=== PATIENT | female | born 1940 | race Caucasian/White ===

== ENCOUNTER 2020-03-31 10:59 | Emergency (ER) | payer MEDICARE, SELFPAY ==
[2020-03-31 10:59] VITALS: BP 156/97; PULSE 106; RESP 18; TEMP 36.9; O2SAT 95; BMI 31.3
--- NOTE | 2020-03-31 11:03 | XRR_ITS ---
PROCEDURE INFORMATION: Exam: XR Left Knee Exam date and time: 03/31/2020 11:03 AM Age: 79 years old Clinical indication: Injury or trauma; Fall; Initial encounter; Blunt trauma; Knee; Left; Additional info: Fall, pain TECHNIQUE: Imaging protocol: XR Left knee. Views: Frontal, lateral, and oblique views. COMPARISON: No relevant prior studies available. FINDINGS: Bones/joints: Small knee joint effusion. No acute bony abnormality identified. Soft tissues: A quadriceps tendon enthesis of the superior pole of the patella is present. XR/XR knee LT 3V* [id number] IMPRESSION: 1. Small knee joint effusion. 2. No acute bony injury identified.
--- NOTE | 2020-03-31 11:08 | ED_ITS ---
HPI - Fall General: Chief Complaint: Extremity Injury, Lower Stated Complaint: LEFT KNEE PAIN S/P FALL Time Seen by Provider: 03/31/20 11:00 History of Present Illness: HPI Narrative: This is a 79 year old female patient presenting with knee pain after a fall a week ago. Today she tried to go out and work in the garden and then knee gave out causing her to fall forward. She caught herself on her hands but also hit the knee somewhat. She was brought in today by ambulance and is unable to weight bear on the left leg. She denies back or neck pain and did not hit her head. She did hit the right side of her face with the original fall a week ago but that seems to be healed up. She says her wrists are little bit sore but she has full range of motion and no swelling. Review of Systems Musc: Reports: joint pain (Left knee) Neuro: Denies: numbness in extremities or weakness in extremities PFSH ED PFSH: Social History Smoking and tobacco status: never smoked Physical Exam Const: COMMON NORMALS: no acute distress, patient oriented x3, no limitations and alert GENERAL APPEARANCE: cooperative and comfortable HENMT: HEAD & SCALP: normal to inspection FACE & SINUS: normal facial exam Eye: GENERAL EYE: appearance normal, both eyes and all related structures Neck/C-Spine: COMMON NORMALS: supple, no meningeal signs and no JVD Chest: COMMONS NORMALS: normal inspection of the chest Resp: COMMON NORMALS: normal respiratory effort, No use of accessory muscles and clear to auscultation bilaterally AUSCULTATION: clear to auscultation bilaterally Cardio: COMMON NORMALS: no JVD, regular rate, regular rhythm and No murmurs present (Cardio) RATE: regular rate RHYTHM: regular rhythm GI: COMMON NORMALS: Normal to inspection, nondistended, normoactive bowel sounds present, Soft to palpation and non-tender INSPECTION: Yes normal to inspection AUSCULTATION: Yes normoactive bowel sounds PALPATION: Yes Soft to palpation Back/Pelvis: COMMON NORMALS: thoracic and lumbar spine normal to inspection Extremity: GENERAL: Yes normal exam except as noted LEFT LOWER EXTREMITY: Yes knee joint (Swelling, tenderness, abrasions. Unable to weight-bear.) Neuro: COMMON NORMALS: patient oriented x3, moves all extremities, no focal motor deficits and no sensory deficits noted SENSORIUM/ORIENTATION: Yes alert MENINGEAL SIGNS: Yes no meningeal signs Psych: COMMON NORMALS: mental status grossly normal, cooperative and normal affect Skin: COMMON NORMALS: no rashes or lesions noted and turgor normal GENERAL SKIN EXAM: no rashes or lesions noted and turgor normal Course ED course: The patient had negative x-rays but may have a ligamentous or carti laginous injury to the knee. She is unable to weight-bear but can extend it and I believe the tendons are intact. I have arranged for a walker and a knee immobilizer. We have arranged for physical therapy to come and sure to use a walker. We contacted her son to come and pick her up and he was irate that we would discharge her home. He says she has 5 steps to go up to get in the house and there is no way that he can take her. Came to the ER and I spoke to him about this and informed him that there was no indication to keep her in the hospital. The only other option medically would be a fpc which she neither requires nor desires. The patient wants to go home and I think she is going to be able to do so. We will see how she does with physical therapy and the walker before a final decision. Reevaluation(s): Reevaluation #1: Ms. Negrete was seen by physical therapy and given instructions on using the walker on steps. He said she did well with the walker in the ED. She will be discharged home with her son and was given orthopedic follow-up for further evaluation of her knee injury. She will continue taking Tylenol arthritis for pain. I also did give her a small prescription for hydrocodone in case she needs that as well. Time: 13:01 Vital Signs: Vital signs: Vital Signs Temperature 98.5 F 03/31/20 10:59 Pulse Rate 94 03/31/20 13:14 Respiratory Rate 16 03/31/20 13:14 Blood Pressure 183/100 03/31/20 13:14 Pulse Oximetry 97 03/31/20 13:14 Discharge Plan Discharge Patient Disposition: Home, Self-Care Clinical Impression: Acute internal derangement of knee Qualifiers: Laterality: left Qualified Code(s): M23.92 - Unspecified internal derangement of left knee Condition: Stable Prescriptions: New hydrocodone-acetaminophen 5-325 mg tablet 1 tab PO Q8H PRN (Reason: pain) Qty: 10 RF: 0 No Action levothyroxine 100 mcg tablet 100 mcg PO DAILY 90 Days Qty: 90 RF: 3 hydrochlorothiazide 25 mg tablet 25 mg PO DAILY 90 Days Qty: 90 RF: 3 glipizide 5 mg tablet 2.5 mg PO BID 90 Days Qty: 90 RF: 3 metformin 500 mg Tablet 250 mg PO BID RF: 0 Aspir-81 81 mg Tablet,Delayed Release (Dr/Ec) 81 mg PO DAILY RF: 0 Tylenol Arthritis Pain 650 mg Tablet Extended Release 650 mg PO PRN RF: 0 zinc 50 mg Tablet 50 mg PO DAILY RF: 0 [place] Mushroom 1 cap PO DAILY RF: 0 Vitamin C 1 tab PO DAILY RF: 0 omeprazole 20 mg capsule,delayed release(DR/EC) 20 mg PO DAILY PRN (Reason: unknown) RF: 0 Discharge Orders: Discharge Order (Routine); Ordered 03/31/20 Ordered By: Cleopatra Blair Referrals: Liset Killian MD [Primary Care Provider] - Roman العراقي DO [Physician] - 4-7 days (internal derangement left knee) Discharge Diet: Usual diet Discharge Activity: Limit activity as instructed and Use walker/crutches as instructed Patient Instructions: Knee Immobilizer (ED) Activity Restrictions/Additional Instructions: Limit weight bearing on the left knee - use the walker when ambulating. Follow up with the orthopedic office for further evaluation and treatment. Discharge Date/Time: 03/31/20 13:14 Coding Level of Care Code ED Web Applications Programmer for Gerard Fwd Exam Comprehensive
[2020-03-31 13:14] VITALS: BP 183/100; PULSE 94; RESP 16; O2SAT 97
--- NOTE | 2020-04-01 11:22 | DCPLANNER ---
network contract manager had message to schedule a follow up appointment for patient with ortho. network contract manager called the ortho clinic, spoke with Pat, gave clinic patients information. network contract manager was told that patients information would be printed and reviewed. Clinic will call protective services case worker with appointment information.
--- NOTE | 2020-04-02 09:11 | DCPLANNER ---
Patient has a follow up appointment scheduled with ortho for Wednesday, April 03, 2020 at 1:[address] Hooper. Clinic will call patient with appointment information.
--- NOTE | 2020-04-18 14:58 | DCPLANNER ---
Patients appointment scheduled for 04.17.20 with ortho was cancelled.
== END 2020-03-31 13:14 | disposition home or self-care (01) ==
PROVIDERS: Emergency Provider Emergency Medicine; Family Provider Family Medicine; PCP Family Medicine
DX: M23.8X2 Other internal derangements of left knee (principal); Z79.84 Long term (current) use of oral hypoglycemic drugs; Z79.82 Long term (current) use of aspirin
CPT/HCPCS: 12345; 29530; 73562; 97161; 97530; 99281; 99283

== ENCOUNTER → 2020-06-20 11:47 | Outpatient (BNVA) | payer MEDICARE, SELFPAY | PROVIDERS: Family Provider Family Medicine; PCP Family Medicine; Visit Provider Family Medicine | DX: E78.00 Pure hypercholesterolemia, unspecified (principal); E11.9 Type 2 diabetes mellitus without complications; E03.8 Other specified hypothyroidism | CPT/HCPCS: 80053; 83036; 84443; 85025 ==

== ENCOUNTER → 2020-08-15 08:45 | Outpatient (BNVA) | payer MEDICARE, SELFPAY | PROVIDERS: Family Provider Family Medicine; PCP Family Medicine; Visit Provider Internal Medicine | DX: E03.9 Hypothyroidism, unspecified (principal); E11.65 Type 2 diabetes mellitus with hyperglycemia; L30.4 Erythema intertrigo; M79.605 Pain in left leg | CPT/HCPCS: 99204 ==

== ENCOUNTER → 2020-10-14 08:54 | Outpatient (BNVA) | payer MEDICARE, SELFPAY ==
[2020-10-14 11:20] LABS: Estmated Average Glucose 137; Hemoglobin A1C 6.4 % (4.0-6.0)
[2020-10-14 11:29] LABS: Free T4 Free Thyroxine 1.48 ng/dL (0.82-1.77); Thyroid Stimulating Hormone 2.97 uIU/mL (0.27-4.20)
[2020-10-14 13:00] LABS: Lipase 91 U/L (13-60)
== END ==
PROVIDERS: PCP Family Medicine; Visit Provider Internal Medicine
DX: E03.9 Hypothyroidism, unspecified (principal); L30.4 Erythema intertrigo; R04.0 Epistaxis; R21 Rash and other nonspecific skin eruption; E11.65 Type 2 diabetes mellitus with hyperglycemia
CPT/HCPCS: 36415; 83036; 83690; 84439; 84443; 99215

== ENCOUNTER → 2021-01-13 09:05 | Outpatient (BNVA) | payer MEDICARE, SELFPAY | PROVIDERS: PCP Family Medicine; Visit Provider Internal Medicine | DX: E03.9 Hypothyroidism, unspecified (principal); E11.65 Type 2 diabetes mellitus with hyperglycemia; L30.4 Erythema intertrigo; R21 Rash and other nonspecific skin eruption | CPT/HCPCS: 99214 ==

== ENCOUNTER 2021-01-16 09:39 | Outpatient (CLI) | payer MEDICARE, SELFPAY ==
[2021-01-16 10:31] LABS: Estmated Average Glucose 137; Hemoglobin A1C 6.4 % (4.0-6.0)
[2021-01-16 10:48] LABS: Free T4 Free Thyroxine 1.59 ng/dL (0.82-1.77); Thyroid Stimulating Hormone 2.56 uIU/mL (0.27-4.20)
== END 2021-01-16 09:40 | disposition home or self-care (01) ==
LOC: LAB 09:48
PROVIDERS: PCP Family Medicine; Visit Provider Internal Medicine
DX: E03.9 Hypothyroidism, unspecified (principal); E11.65 Type 2 diabetes mellitus with hyperglycemia
CPT/HCPCS: 36415; 83036; 84439; 84443

== ENCOUNTER → 2021-05-27 10:26 | Outpatient (BNVA) | payer MEDICARE, SELFPAY | PROVIDERS: PCP Family Medicine; Visit Provider Family Medicine | DX: E03.9 Hypothyroidism, unspecified (principal); E11.65 Type 2 diabetes mellitus with hyperglycemia; E78.00 Pure hypercholesterolemia, unspecified; I10 Essential (primary) hypertension; K90.9 Intestinal malabsorption, unspecified; R19.7 Diarrhea, unspecified; G56.01 Carpal tunnel syndrome, right upper limb | CPT/HCPCS: 80053; 83036; 84439; 84443; 85025 ==

== ENCOUNTER → 2021-09-01 11:30 | Outpatient (BNVA) | payer MEDICARE, SELFPAY | PROVIDERS: PCP Family Medicine; Visit Provider Family Medicine | DX: M54.50 Low back pain, unspecified (principal); E11.65 Type 2 diabetes mellitus with hyperglycemia; N30.00 Acute cystitis without hematuria | CPT/HCPCS: 36416; 81000; 82962 ==

== ENCOUNTER → 2021-11-18 10:36 | Outpatient (BNVA) | payer MEDICARE, SELFPAY | PROVIDERS: PCP Family Medicine; Visit Provider Family Medicine | DX: E03.9 Hypothyroidism, unspecified (principal); E11.65 Type 2 diabetes mellitus with hyperglycemia; E83.42 Hypomagnesemia; I10 Essential (primary) hypertension | CPT/HCPCS: 80053; 83036; 83735; 84443; 85025 ==

== ENCOUNTER → 2022-02-04 10:39 | Outpatient (BNVA) | payer MEDICARE, SELFPAY | PROVIDERS: PCP Family Medicine; Visit Provider Family Medicine | DX: G56.01 Carpal tunnel syndrome, right upper limb (principal) | CPT/HCPCS: 71046 ==

== ENCOUNTER → 2022-03-05 11:57 | Outpatient (BNVA) | payer MEDICARE, SELFPAY | PROVIDERS: PCP Family Medicine; Visit Provider Family Medicine | DX: E03.9 Hypothyroidism, unspecified (principal); I10 Essential (primary) hypertension; E11.9 Type 2 diabetes mellitus without complications; E78.00 Pure hypercholesterolemia, unspecified; E55.9 Vitamin D deficiency, unspecified; E53.8 Deficiency of other specified B group vitamins; G56.01 Carpal tunnel syndrome, right upper limb; E11.65 Type 2 diabetes mellitus with hyperglycemia; Z82.49 Family history of ischemic heart disease and other diseases of the circulatory system | CPT/HCPCS: 80053; 82306; 82607; 83036 ==

== ENCOUNTER → 2023-01-11 15:06 | Outpatient (BNVA) | payer MEDICARE, SELFPAY | PROVIDERS: PCP Family Medicine; Visit Provider Clinical Nurse Specialist Adult Health | DX: M54.50 Low back pain, unspecified (principal); E03.9 Hypothyroidism, unspecified; E11.9 Type 2 diabetes mellitus without complications | CPT/HCPCS: 80053; 81000; 83036; 84443; 85025 ==

== ENCOUNTER → 2023-03-08 10:48 | Outpatient (BNVA) | payer MEDICARE, SELFPAY | PROVIDERS: PCP Family Medicine; Visit Provider Family Medicine | DX: E03.9 Hypothyroidism, unspecified (principal); E11.65 Type 2 diabetes mellitus with hyperglycemia; R30.0 Dysuria; E78.00 Pure hypercholesterolemia, unspecified | CPT/HCPCS: 80048 ==

== ENCOUNTER → 2023-04-28 10:31 | Outpatient (BNVA) | payer MEDICARE, SELFPAY | PROVIDERS: PCP Family Medicine; Visit Provider Registered Nurse Neonatal Intensive Care | DX: M19.041 Primary osteoarthritis, right hand (principal) | CPT/HCPCS: 73130 ==

== ENCOUNTER → 2023-06-02 12:36 | Outpatient (BNVA) | payer MEDICARE, SELFPAY | PROVIDERS: PCP Family Medicine; Referring Provider Family Medicine; Visit Provider Internal Medicine | DX: E11.65 Type 2 diabetes mellitus with hyperglycemia (principal); E03.9 Hypothyroidism, unspecified; E78.00 Pure hypercholesterolemia, unspecified; Z79.84 Long term (current) use of oral hypoglycemic drugs; Z79.890 Hormone replacement therapy | CPT/HCPCS: 99214 ==

== ENCOUNTER → 2023-09-28 12:47 | Outpatient (BNVA) | payer MEDICARE, SELFPAY | PROVIDERS: PCP Family Medicine; Visit Provider Family Medicine | DX: E11.9 Type 2 diabetes mellitus without complications (principal); E03.9 Hypothyroidism, unspecified; J01.00 Acute maxillary sinusitis, unspecified | CPT/HCPCS: 80053; 83036; 84443; 85025 ==

== ENCOUNTER → 2023-10-20 09:51 | Outpatient (BNVA) | payer MEDICARE, SELFPAY | PROVIDERS: PCP Family Medicine; Visit Provider Internal Medicine | DX: E11.65 Type 2 diabetes mellitus with hyperglycemia (principal); E03.9 Hypothyroidism, unspecified; E78.00 Pure hypercholesterolemia, unspecified; Z79.890 Hormone replacement therapy; Z79.84 Long term (current) use of oral hypoglycemic drugs | CPT/HCPCS: 99214 ==

== ENCOUNTER 2024-01-03 10:26 | Outpatient (CLI) | payer MEDICARE, SELFPAY ==
[2024-01-03 11:14] LABS: Estmated Average Glucose 123; Hemoglobin A1C 5.9 % (4.0-6.0)
[2024-01-03 11:19] LABS: Creatinine Urine, Random 42 mg/dL (28-217); Microalbum Creatinine Ratio Ur 48 mg/dL (0-20); Microalbumin Random Urine 2 ug/dL (0-20)
[2024-01-03 11:21] LABS: Alanine Aminotransferase 17 U/L (0-33); Alkaline Phosphatase 82 U/L (35-105); Anion Gap 15.8 (5-19); Aspartate Amino Transferase 20 U/L (0-32); Blood Urea Nitrogen 22 mg/dL (8-23); Calcium 9.5 mg/dL (8.5-10.5); Carbon Dioxide 27 mmol/L (22-29); Chloride 100 mmol/L (98-107); Cholesterol 246 mg/dL (0-200); Free T4 Free Thyroxine 1.56 ng/dL (0.82-1.77); Globulin 3.2 g/dL (1.3-4.6); Glucose 103 mg/dL (65-115); HDL Cholesterol 60 mg/dL (60-100); LDL Cholesterol Calculated 142 mg/dL (50-129); LDL HDL Ratio 2.37 RATIO (0.00-3.22); Osmolality Calculated 292 mOsm/kg (285-295); Potassium 3.8 mmol/L (3.5-5.1); Sodium 139 mmol/L (136-145); Thyroid Stimulating Hormone 2.56 uIU/mL (0.27-4.20); Total Bilirubin 0.5 mg/dL (0.15-1.2); Total Protein 7.2 g/dL (6.6-8.7); Triglycerides 222 mg/dL (0-150)
== END 2024-01-03 10:27 | disposition home or self-care (01) ==
LOC: LAB 10:27
PROVIDERS: PCP Family Medicine; Visit Provider Internal Medicine
DX: E11.65 Type 2 diabetes mellitus with hyperglycemia (principal); E03.9 Hypothyroidism, unspecified
CPT/HCPCS: 36415; 80053; 80061; 82044; 83036; 84439; 84443

== ENCOUNTER → 2024-01-18 08:53 | Outpatient (BNVA) | payer MEDICARE, SELFPAY | PROVIDERS: PCP Family Medicine; Visit Provider Internal Medicine | DX: E11.65 Type 2 diabetes mellitus with hyperglycemia (principal); E03.9 Hypothyroidism, unspecified; E78.00 Pure hypercholesterolemia, unspecified; M11.8 Other specified crystal arthropathies; Z79.890 Hormone replacement therapy; Z79.84 Long term (current) use of oral hypoglycemic drugs | CPT/HCPCS: 99214 ==

== ENCOUNTER → 2024-03-14 14:16 | Outpatient (BNVA) | payer MEDICARE, SELFPAY | PROVIDERS: PCP Family Medicine; Referring Provider Internal Medicine; Visit Provider Student in an Organized Health Care Education/Training Program | DX: G56.01 Carpal tunnel syndrome, right upper limb (principal); M19.041 Primary osteoarthritis, right hand | CPT/HCPCS: 73130 ==

== ENCOUNTER 2024-05-10 07:14 | Day surgery (SDC) | payer MEDICARE, SELFPAY ==
[2024-05-10] VITALS (10 sets, daily range): BP systolic 94–140; BP diastolic 58–87; PULSE 67–76; RESP 18; TEMP 36.1–36.2; O2SAT 95–99; BMI 30.7
[2024-05-10 07:56] LABS: Glucose Point of Care 171 mg/dL (70-110)
[2024-05-10] MEDS: sodium chloride 0.9% 1,000 ML 30 ML IV (07:59)
[2024-05-10] MEDS: ketorolac 30 mg/mL INJ IVP (08:00)
[2024-05-10] MEDS: acetaminophen 1,000 MG/100 ML PIGGYBACK 400 MG IV (08:00)
[2024-05-10] MEDS: scopolamine 1.5 Patch 1 PATCH TRANSDERMA (08:01)
--- NOTE | 2024-05-10 08:08 | ECG_ITS ---
[facility] Test Date: 2024-05-10 Pat Name: July Negrete Department: Room: Gender: Female Can Sealer: : 1940 Requested By: Rosario Macias Order Number: [id number] Gita MD: Adebayo Medeiros M.D. Measurements Intervals [place] Rate: 80 P: 39 SC: 172 QRS: 7 QRSD: 86 T: 38 QT: 374 QTc: 432 Interpretive Statements SINUS RHYTHM No previous ECG available for comparison Electronically Signed On 05-10-2024 10:28:11 CDT by Adebayo Medeiros M.D. [id number]
--- NOTE | 2024-05-10 08:11 | ANES.PREANE2 ---
Pre-Anesthetic Assessment Height/Weight: Height 1.68 m Weight 86.183 kg Temp Pulse Resp BP Pulse Ox O2 Del Method 97.0 F L 73 18 140/87 97 Room Air 05/10/24 07:34 05/10/24 07:34 05/10/24 07:34 05/10/24 07:34 05/10/24 07:34 05/10/24 07:34 Operation Date: 05/10/24 08:50 Proposed Procedures p Carpal Tunnel Release(Right) - Chad Kay, DO Was Beta Diamond taken within 24 hours: N/A Was Clonidine taken within 24 hours: N/A Last intake: Intake Last Liquid Date 05/10/24 Last Liquid Time 19:00 Last Solid Date 05/10/24 Last Solid Time 18:30 Social Tobacco social smoker last cig yesterday afternoon Exam alert, oriented x 3, clear to auscultation bilaterally and regular rate & rhythm Airway Submandibular: within normal limits Cervical ROM: within normal limits Mallampati: Class II Comments: Comments: front veneers History/ROS No significant history except as noted Pulmonary smoker CV/HEM METS = 4. Patient reports occasional twinges of lightening sensation in her chest, no pattern of activity. Patient also has significant peripheral neuropathy. EKG to be obtained None reported Hepatic None reported GI Gastroesophageal Reflux Disease controlled, none today Metabolic Diabetes Mellitus and Thyroid Disease Musc/skel Lower Back Pain multiple back surgeries Neuropsych Neuropathy Anesthetic Plan ASA status: 3 Anesthesia: Anesthesia Evaluation and MAC Risk of > 500 ml blood loss (7ml/kg in children): Yes, adequate IV access and fluids planned Medications/Allergies Home Medications Medication Instructions Recorded Confirmed Last Taken Type Vitamin C 1 tab PO DAILY 03/31/20 05/10/24 05/09/24 History aspirin 81 mg tablet,delayed 81 mg PO DAILY #90 tabs 06/24/20 05/09/24 04/25/24 Rx release magnesium 200 mg tablet 200 mg PO DAILY 11/18/21 05/10/24 05/09/24 History zinc 50 mg tablet 50 mg PO DAILY 11/18/21 05/10/24 05/09/24 History cholestyramine-aspartame 4 gram 4 g PO DAILY diarrhea #201.6 grams 03/08/23 05/09/24 04/25/24 Rx oral powder (Cholestyramine Light) blood sugar diagnostic (Easy Touch #100 ea 01/18/24 03/14/24 Unknown Rx Test Strip) diclofenac sodium 1 % topical gel 2 g topical QID #100 grams 01/24/24 05/10/24 05/09/24 Rx (Voltaren Arthritis Pain) pioglitazone 30 mg tablet (Actos) 30 mg PO DAILY #90 tabs 02/17/24 05/10/24 05/09/24 Rx hydrochlorothiazide 25 mg tablet 25 mg PO DAILY 05/09/24 05/10/24 05/09/24 History levothyroxine 88 mcg tablet 88 mcg PO DAILY 05/09/24 05/10/24 05/09/24 History Allergies Allergy/AdvReac Type Severity Reaction Status Date / Time Milk Containing Products Allergy ADR-Diarrhe Verified 05/09/24 13:50 (Dairy) a Current Medications Generic Name Dose Route Start Last Admin Trade Name Freq PRN Reason Stop Dose Admin Sodium Chloride 1,000 mls @ 30 mls/hr 05/10/24 07:30 05/10/24 07:59 Sodium Chloride 0.9% IV 05/11/24 07:29 30 mls/hr .Q24H CARA Administration PFSH Anesthesia Medical History Type 2 diabetes mellitus without complications Carpal tunnel syndrome, bilateral Vitamin D deficiency GERD (gastroesophageal reflux disease) Venous (peripheral) insufficiency Meniscal injury Hypertension Diabetes Hypercholesteremia Surgical History H/O carpal tunnel repair History of appendectomy History of breast biopsy History of back surgery Family History Other Obesity Social History Smoking and tobacco/nicotine status: never used tobacco/nicotine Alcohol intake: never Substance/Drug Use: never Data Anesthesia Cardiac Studies: No Data to Display
--- NOTE | 2024-05-10 08:59 | W.PM.OPSFHP ---
Same Day Surgery H&P Indication for Procedure/HPI DATE OF PROCEDURE: May 10, 2024 CHIEF COMPLAINT/INDICATIONFOR SURGICAL PROCEDURE: Right carpal tunnel syndrome PREOP DIAGNOSIS: Right carpal tunnel syndrome PLANNED PROCEDURE: Operation Date: 05/10/24 08:50 Proposed Procedures p Carpal Tunnel Release(Right) - Chad Kay DO Medications/Allergies* Home Medications Medication Instructions Recorded Confirmed Type Vitamin C 1 tab PO DAILY 03/31/20 05/10/24 History magnesium 200 mg tablet 200 mg PO DAILY 11/18/21 05/10/24 History zinc 50 mg tablet 50 mg PO DAILY 11/18/21 05/10/24 History hydrochlorothiazide 25 mg tablet 25 mg PO DAILY 05/09/24 05/10/24 History levothyroxine 88 mcg tablet 88 mcg PO DAILY 05/09/24 05/10/24 History Allergies/Adverse Reactions Allergy/AdvReac Type Severity Reaction Status Date / Time Milk Containing Products Allergy ADR-Diarrhe Verified 05/09/24 13:50 (Dairy) a Current Medications: Generic Name Dose Route Start Last Admin Trade Name Freq PRN Reason Stop Dose Admin Sodium Chloride 1,000 mls @ 30 mls/hr 05/10/24 07:30 05/10/24 07:59 Sodium Chloride 0.9% IV 05/11/24 07:29 30 mls/hr .Q24H CARA Administration Pertinent History/Comorbid Conditions* Medical History (Updated 01/11/23 @ 15:50 by Zacarias Koo NP) Type 2 diabetes mellitus without complications Carpal tunnel syndrome, bilateral Vitamin D deficiency GERD (gastroesophageal reflux disease) Venous (peripheral) insufficiency Meniscal injury Hypertension Diabetes Hypercholesteremia Surgical History (Updated 08/18/20 @ 18:53 by Corazon Flower MD) H/O carpal tunnel repair History of appendectomy History of breast biopsy History of back surgery Family History (Updated 08/18/20 @ 18:54 by Corazon Flower MD) Obesity Social History Smoking and tobacco/nicotine status: never used tobacco/nicotine Alcohol intake: never Substance/Drug Use: never Pertinent Exam Findings alert, oriented x 3, operative site marked and procedure specific exam findings Please refer to detailed orthopedic examination on 03/14/2024: Examination today in the preop of the right upper extremity demonstrates positive medial compression test of the wrist as well as positive Tinel's and median nerve paresthesias. BUE examination negative spurlings negative tinels at shoulder negative tinels at the elbow positive median nerve compression test, bilaterally positive tinels, bilaterally positive phalens bilaterally noticable right thenar weakness, with no significant atrophy; right good thenar strength and no atrophy on the left negative cmc grind on the right positive cmc grind on the left good intrinsic strength, no atrophy Recommendations Surgery/Procedure today Other Plans: Plan to proceed to the OR today for right carpal tunnel release surgery. She understands the ins and outs procedure the risk benefits complication alternatives surgery and through shared decision make elects proceed with surgical intervention all questions answered at this time. Coding Level of Care Code Acute Code for Gerard Deutsch
[2024-05-10] MEDS: ceFAZolin 2,000 MG in sodium chloride 0.9% (plus) 50 ML 100 MG IV (09:07)
[2024-05-10] MEDS: lidocaine-epi 1% 20 mL INJ 5 ML INJECTION (09:31)
[2024-05-10] MEDS: ROPivacaine 0.5% SDV 30 mL 25 MG INJECTION (09:31)
--- NOTE | 2024-05-10 09:48 | PM.OP ---
Operative Report Date of procedure: May 10, 2024 Surgeon: Chad Kay DO Procedure: Preop Diagnosis: Right Carpal Tunnel Syndrome Post-op diagnosis: Same Procedure done: 1. Right carpal tunnel release Surgeon: Chad Kay DO Anesthesia: MAC (Local) Estimated blood loss: 1 mL Tourniquet time 9 minutes IV fluids: See anesthesia record Complications: None Findings: See operative report narrative Condition: stable Disposition: same day Brief History: Patient is a pleasant 83 year-old female with right carpal tunnel syndrome. Patient has been worked up in the outpatient setting findings and physical examination consistent with this. We detailed out patient's risk benefits complication alternatives with surgical and nonsurgical treatment options. Through shared decision making, patient agrees to proceed with surgical intervention of the right carpal tunnel release . Patient understands and agrees with current plan. All questions answered. Patient elects to proceed with surgical intervention with carpal tunnel release. Procedure: Patient seen and evaluated in the preoperative holding area. Consent was reviewed and signed with patient. Correct extremity was marked. Patient was seen evaluated by the anesthesia department once cleared for surgery was brought back to the operative suite. Patient was kept on [facility] in supine position all bony prominences were well-padded patient properly secured to the bed. Right upper extremity was then placed onto an armboard. A nonsterile tourniquet was applied to the Right upper arm. Patient underwent anesthesia per the anesthesia department. Patient's Right upper extremity was then prepped and draped in standard orthopedic fashion. Final timeout performed. Patient received appropriate preoperative antibiotics. Under sterile aseptic technique patient received local anesthesia over the preplanned carpal tunnel incision site. Esmarch was used to exsanguinate the Right upper extremity and tourniquet was insufflated to 250 mmHg. A standard mini open Right carpal tunnel incision was made. Starting distally at Biggs's cardinal line in line with the fourth ray extending proximally distal to the wrist crease centered over the carpal tunnel. Sharp scalpel incision was made through skin and subcutaneous tissue. Self-retaining retractor was placed and the palmar fascia was identified. This was then split longitudinally and direct visualization of the transverse carpal ligament was then made. I then utilizing scalpel feathered through the transverse carpal ligament until I entered the floor of the transverse carpal tunnel ligament into the carpal tunnel. Next I switched to dissection scissors and completed my release of the transverse carpal ligament distally with care to protect the recurrent motor branch. I completely released into the palmar fat and until no entrapment was noted distally. Care was made to protect the superficial palmar arch during my distal dissection. Next I utilized a nasal speculum placed on top of the transverse carpal ligament and utilize this to retract the subcutaneous fat and tissue and under direct loupe magnification was able to identify the transverse carpal ligament. Next I then protected the contents of the carpal tunnel and subsequently utilizing dissection scissors under loupe magnification completely released the transverse carpal ligament proximally into the antebrachial fascia. Care was made to protect the palmar cutaneous branch by keeping my scissors curved ulnarly. Once completely released, I then placed my Hull and had appropriate decompression of the carpal tunnel proximally as well as distally. I then inspected the contents of the carpal tunnel which showed an hourglass shape of the median nerve showing its compression. No masses were noted. Tendons appeared healthy. Wound was then thoroughly irrigated. Tourniquet deflated. Hemostasis satisfactory with bipolar electrocautery. I then closed the incision with interrupted nylon stitches. Xeroform 4 x 4's and a bulky soft dressing was applied. Patient was then awakened from anesthesia and taken to PACU in stable condition. Patient tolerated procedure without complications. Disposition: Patient taken to PACU in stable condition recovering well. Dressing clean dry and intact. Patient will receive appropriate discharge instructions as well as pain medication postoperatively. Patient to follow-up with me in the office in 2 weeks. They understand they may be weightbearing as tolerated to the right hand. Patient should keep incision clean dry and intact. Patient understands if any questions or concerns may contact the office.
--- NOTE | 2024-05-10 09:53 | P.BOP_ITS ---
Date of Procedure: [May 10, 2024] Surgeon: [Dr. Eliza DO] Senior Java Programmer Analyst(s): [Nitin Kay PA-C] Procedure(s) performed: [Right carpal tunnel release] Findings of the procedure(s): [Right carpal tunnel syndrome] Estimated blood loss: [1 mL] Specimen(s) removed: [N/A] Post-operative diagnosis: [Right carpal tunnel syndrome]
--- NOTE | 2024-05-10 09:54 | P.PCN_ITS ---
PACU note Narrative: Patient is 83-year-old female just underwent right carpal tunnel release. Patient transferred to PACU in stable condition. Pain is well controlled. Dressing on hand is dry and in place. Patient's fingers are warm and well- perfused. Patient can wiggle fingers. normal cap refill under 2 seconds. Patient has normal elbow range of motion. Unable to assess sensation due to residual localized anesthetic. Exam: awake Disposition: discharged
--- NOTE | 2024-05-10 11:00 | ANE.PACU2 ---
Inpatient post-anesthesia follow up: Airway intact: Yes Vital signs: Temperature 97.0 F Pulse Rate 75 Respiratory Rate 18 Blood Pressure 128/64 Pulse Oximetry 97 Oxygen Delivery Me thod Room Air Oxygen Flow Rate 6 Fraction of Inspir ed Oxygen Hydration adequate: Yes Pain level: 1 Mental status: Baseline
== END 2024-05-10 11:00 | disposition home or self-care (01) ==
PROVIDERS: PCP Family Medicine; Visit Provider Student in an Organized Health Care Education/Training Program
PROC: (CPT 64721; principal; 2024-05-10 08:50)
DX: G56.01 Carpal tunnel syndrome, right upper limb (principal); I10 Essential (primary) hypertension; F17.200 Nicotine dependence, unspecified, uncomplicated; K21.9 Gastro-esophageal reflux disease without esophagitis; E11.40 Type 2 diabetes mellitus with diabetic neuropathy, unspecified
CPT/HCPCS: 64721; 36416; 82962; 93005; J0131; J0690; J1885; J2704; J2795; J3010; J7030

== ENCOUNTER → 2024-05-23 14:15 | Outpatient (BNVA) | payer MEDICARE, SELFPAY | PROVIDERS: PCP Family Medicine; Visit Provider Physician Assistant | DX: Z98.890 Other specified postprocedural states (principal) | CPT/HCPCS: 99024 ==

== ENCOUNTER → 2024-06-08 07:40 | Outpatient (BNVA) | payer MEDICARE, SELFPAY | PROVIDERS: PCP Family Medicine; Visit Provider Internal Medicine | DX: E11.65 Type 2 diabetes mellitus with hyperglycemia (principal); E03.9 Hypothyroidism, unspecified; E78.00 Pure hypercholesterolemia, unspecified; Z79.890 Hormone replacement therapy; Z79.85 Long-term (current) use of injectable non-insulin antidiabetic drugs | CPT/HCPCS: 36415; 80053; 80061; 82044; 83036; 84439; 84443; 99214 ==

== ENCOUNTER → 2025-01-01 08:25 | Outpatient (BNVA) | payer MEDICARE, SELFPAY | PROVIDERS: PCP Family Medicine; Visit Provider Internal Medicine | DX: E11.65 Type 2 diabetes mellitus with hyperglycemia (principal); E03.9 Hypothyroidism, unspecified; E78.00 Pure hypercholesterolemia, unspecified | CPT/HCPCS: 36415; 80061; 83036; 83721; 84439; 84443; 99214 ==

== ENCOUNTER → 2025-03-01 10:00 | Outpatient (BNVA) | payer MEDICARE, SELFPAY | PROVIDERS: PCP Family Medicine; Visit Provider Internal Medicine | DX: E11.65 Type 2 diabetes mellitus with hyperglycemia (principal); E03.9 Hypothyroidism, unspecified; E78.00 Pure hypercholesterolemia, unspecified | CPT/HCPCS: 99214 ==

== ENCOUNTER 2025-06-21 12:54 | Outpatient (CLI) | payer MEDICARE, SELFPAY ==
[2025-06-21 13:21] LABS: Estmated Average Glucose 151; Hemoglobin A1C 6.9 % (4.0-6.0)
[2025-06-21 13:28] LABS: Creatinine Urine, Random 142 mg/dL (28-217)
[2025-06-21 13:29] LABS: Microalbum Creatinine Ratio Ur 56 mg/dL (0-20)
[2025-06-21 13:37] LABS: Alanine Aminotransferase 41 U/L (0-33); Albumin Level 4.4 g/dL (3.5-5.2); Alkaline Phosphatase 77 U/L (35-105); Anion Gap 20.1 (5-19); Aspartate Amino Transferase 43 U/L (0-32); Blood Urea Nitrogen 19 mg/dL (8-23); Calcium 9.7 mg/dL (8.5-10.5); Carbon Dioxide 23 mmol/L (22-29); Chloride 101 mmol/L (98-107); Cholesterol 230 mg/dL (0-200); Free T4 Free Thyroxine 1.46 ng/dL (0.82-1.77); Globulin 2.8 g/dL (1.3-4.6); Glucose 131 mg/dL (65-115); HDL Cholesterol 57 mg/dL (60-100); Osmolality Calculated 294 mOsm/kg (285-295); Potassium 4.1 mmol/L (3.5-5.1); Sodium 140 mmol/L (136-145); Thyroid Stimulating Hormone 2.96 uIU/mL (0.27-4.20); Total Protein 7.2 g/dL (6.6-8.7); Triglycerides 295 mg/dL (0-150)
== END 2025-06-21 12:55 | disposition home or self-care (01) ==
PROVIDERS: PCP Family Medicine; Visit Provider Internal Medicine
DX: E03.9 Hypothyroidism, unspecified (principal); E78.00 Pure hypercholesterolemia, unspecified; E11.65 Type 2 diabetes mellitus with hyperglycemia
CPT/HCPCS: 36415; 80053; 80061; 82044; 83036; 84439; 84443

== ENCOUNTER → 2025-07-02 08:02 | Outpatient (BNVA) | payer MEDICARE, SELFPAY | PROVIDERS: PCP Family Medicine; Visit Provider Internal Medicine | DX: E11.9 Type 2 diabetes mellitus without complications (principal); E03.9 Hypothyroidism, unspecified; E78.00 Pure hypercholesterolemia, unspecified | CPT/HCPCS: 99214 ==